=== PATIENT | female | born 2005 | race African-American/Black ===

== ENCOUNTER 2024-07-30 21:48 | Emergency (ER) | payer OTHER ==
[~2024-07-30] VITALS: Ht 157.5 cm; Wt 88.0 kg
[2024-07-30 22:07] VITALS: PULSE 82; RESP 20; TEMP 98.3
[2024-07-30] MEDS ORDERED: PREDNISONE50 MG PO (22:10)
[2024-07-30] MEDS ORDERED: EPINEPHRIN0.3 MG/0.3 IJ (22:12)
[2024-07-30] MEDS: PREDNISONE 5 MG TAB PO ONE (22:19)
[2024-07-30] MEDS: DEXAMETHASONE SOD PHOS INJ 4 MG/ML SDV IV ONE (22:39)
[2024-07-30 22:45] VITALS: PULSE 79; RESP 18; O2SAT 98
== END 2024-07-30 22:45 | disposition home or self-care (01) ==
LOC: FSED 22:05
DX: R60.9 Edema, unspecified (principal); R19.7 Diarrhea, unspecified; T78.40XA Allergy, unspecified, initial encounter
CPT/HCPCS: 99282; J1100; J7512